=== PATIENT | male | born 1955 | race Caucasian/White ===

== ENCOUNTER 2020-08-27 19:11 | Emergency (ER) | payer MEDICARE, OTHER ==
[~2020-08-27 19:11] MED LIST: ALL DAY ALLERGY10 M2 PO; ANDROGEL1.25 GM TOP; ASPIRIN CHEWABL81 MG PO; BACLOFEN 10MG T10 MG PO; BIOTENE237 ML PO; CELEXA20 MG PO; CERTAGEN1 EACH PO; EMERGEN-C 1,01000 MG PO; FLONASE ALLER15.8 ML; LOVAZA1 G1 PO; MOBIC7.5 MG PO; MONTELUKAST SOD10 MG PO; NORTRIPTYLINE H75 MG PO; PERCOCET 10-321 EACH PO; PRINIVIL10 MG PO; QUIN B STRONG1 EACH PO; VITAMIN D5000 UNIT PO; VOLTAREN **OUT50 MG TOP; XANAX0.5 MG PO; ZOVIRAX200 MG PO
[2020-08-27 20:49] LABS: BASOPHIL 0.3 % (0-2); EOSINOPHIL 0.4 % (0-7); HCT 36.6 % (42.0-52.0); HGB 12.5 g/dl (13.2-18.0); LYMPHOCYTE 21.8 % (15-48); MCH 31.3 pg (25.0-31.0); MCHC 34.2 g/dL (32.0-36.0); MCV 91.7 fL (78.0-100.0); MONOCYTE 12.4 % (0-12); MPV 9.2 fL (6.0-9.5); NEUTROPHIL 64.8 % (41-80); NRBC 0; PLT 214 K/uL (150-400); RBC 3.99 M/uL (4.70-6.00); RDW 12.9 % (11.5-14.0); WBC 9.2 K/uL (4.0-10.5)
[2020-08-27 21:02] LABS: ALBUMIN 3.7 g/dL (3.4-5.0); BILIRUBIN - TOTAL 0.4 mg/dL (0.2-1.0); BUN/CREAT RATIO (CALC) 27.8 RATIO; CREATININE 0.9 mg/dL (0.67-1.17); GLOBULIN (CALCULATION) 3.9 g/dL; MAGNESIUM 1.9 mg/dL (1.8-2.4); POTASSIUM 4.8 mmol/L (3.5-5.1); TOTAL PROTEIN 7.6 g/dL (6.4-8.2)
[2020-08-27 21:21] LABS: BILIRUBIN NEGATIVE (NEGATIVE); BLOOD NEGATIVE Ery/uL (NEGATIVE); CLARITY CLEAR (CLEAR); COLOR YELLOW (YELLOW); GLUCOSE (U) NORMAL (NORMAL); LEUKOCYTES NEGATIVE Leu/uL (NEGATIVE); NITRITE NEGATIVE (NEGATIVE); PROTEIN NEGATIVE (NEGATIVE); UROBILINOGEN 0.2 mg/dL (0.2-1.0); pH 5.5 (5.0-9.0)
== END 2020-08-27 22:50 | disposition home or self-care (01) ==
LOC: FER 19:11
PROVIDERS: Emergency Medicine
DX: K59.00 Constipation, unspecified (principal); Z98.890 Other specified postprocedural states
CPT/HCPCS: 36415; 80053; 81003; 83735; 85025; Q9967

== ENCOUNTER 2021-09-19 11:20 | Emergency (ER) | payer MEDICARE, OTHER ==
[~2021-09-19 11:20] MED LIST changes: +AZELASTINE205.5 MCG/; +B COMPLEX1 EACH PO; +CETIRIZINE HCL10 MG PO; +COQ-10100 MG PO; +IBUPROFEN800 MG PO; +LIPITOR20 MG PO; +LYRICA 50MG CAP50 MG PO; +TAMSULOSIN HCL0.4 MG PO
== END 2021-09-19 12:12 | disposition left against medical advice (07) ==
LOC: FER 11:20
DX: R11.10 Vomiting, unspecified (principal); Z53.8 Procedure and treatment not carried out for other reasons
CPT/HCPCS: 99281

== ENCOUNTER 2021-12-26 08:00 | Day surgery (SDC) | payer MEDICARE, OTHER ==
[~2021-12-26] VITALS: Ht 180 cm; Wt 104.0 kg
[2021-12-27 06:09] LABS: BASOPHIL 0.1 % (0-2); EOSINOPHIL 0 % (0-7); HCT 36.6 % (42.0-52.0); HGB 12.3 g/dl (13.2-18.0); LYMPHOCYTE 6.8 % (15-48); MCH 31.6 pg (25.0-31.0); MCHC 33.6 g/dL (32.0-36.0); MCV 94.1 fL (78.0-100.0); MONOCYTE 9.1 % (0-12); MPV 9.1 fL (6.0-9.5); NEUTROPHIL 83.3 % (41-80); NRBC 0; PLT 248 K/uL (150-400); RBC 3.89 M/uL (4.70-6.00); RDW 13.5 % (11.5-14.0)
[2021-12-27 06:37] LABS: BUN/CREAT RATIO (CALC) 28.3 RATIO; CREATININE 0.92 mg/dL (0.67-1.17)
[2021-12-27 06:57] LABS: WBC 16.7 K/uL (4.0-10.5)
[2021-12-27] MEDS ORDERED: XARELTO10 MG PO (08:59)
[2021-12-27] MEDS ORDERED: OXYCODONE-ACET1 EAC1 PO (08:59)
[2021-12-27] MEDS ORDERED: FEOSOL325 MG PO (08:59)
== END 2021-12-27 11:22 | disposition home health service (06) ==
LOC: FAS 08:00 → FMS 08:00 → FAS 09:00 → FMS 13:03 → FAS 12-27 11:22
PROVIDERS: Legal Medicine
DX: M17.12 Unilateral primary osteoarthritis, left knee (principal); M21.162 Varus deformity, not elsewhere classified, left knee; I10 Essential (primary) hypertension; E78.5 Hyperlipidemia, unspecified; G47.33 Obstructive sleep apnea (adult) (pediatric); G89.18 Other acute postprocedural pain; G89.29 Other chronic pain; Z87.891 Personal history of nicotine dependence; Z79.899 Other long term (current) drug therapy
CPT/HCPCS: 36415; 73560; 80048; 85025; 86850; 86900; 86901; 94010; 94762; 97162; 97166; 97530; 97530-GP; C1713; C1776; J0171; J0697; J1100; J1170; J1885; J2250; J2270; J2405; J2704; J2795; J3010; J7120